=== PATIENT | male | born 1955 | race Caucasian/White ===

== ENCOUNTER 2020-01-20 19:42 | Inpatient (IN) | payer OTHER ==
[~2020-01-20] VITALS: Ht 175.3 cm; Wt 120.1 kg
--- NOTE | ~2020-01-20 | HC ---
[facility] [place] [address] CONSULTATION Name: SHANTEL HUMPHREY Room #: 353-P ADM IN M.Grabiel.#: [id number] Admission: 01/20/20 Attend Phys: Juan Luis Davis MD Discharge: Date of : 57 Report #: [id number] THIS REPORT FOR: cc: Jorge Mcfadden James L. DO Al-Absi, Ahmed I. MD ~ CC: Jorge Davis REASON FOR THE CONSULTATION: Elevated creatinine. REASON FOR THE PRESENTATION: Shortness of breath and elevated kidney numbers. HISTORY OF PRESENT ILLNESS: A 64-year-old with past medical history of COPD, hypertension. He presented to an outside facility with worsening shortness of breath. He had been treated there for pneumonitis. His describes what seems to be as an urticarial rash. The patient's creatinine when he presented to the other facility was elevated at 3.1 and he was told he will need to be transferred to our facility where a letterpress printing machinist is available. He was also found to have an elevated AST and ALT. He admits to taking nonsteroidal anti-inflammatory medications in the last few days. He is not really sure about which antibiotic he received in the other facility. He carries a diagnosis of hypertension. He is not aware of any previous knowledge of hematuria, proteinuria, being told that he has kidney issues. The patient's creatinine from this morning was 2.9. I was consulted to manage his kidney issues. PAST MEDICAL HISTORY: Includes the followin. COPD. 2. Rheumatoid arthritis. 3. Obesity. 4. Hypertension. 5. Post tonsillectomy. 6. Skin cancer. 7. Hernia repair. SOCIAL HISTORY: Denies alcohol or drug abuse. Lives with his . FAMILY HISTORY: Mother has diabetes mellitus. ALLERGIES: LEVOFLOXACIN AND MORPHINE. MEDICATIONS: 1. Nitroglycerin. 2. Metoprolol. 3. Aspirin. 4. Gabapentin. 5. Buspirone. [facility] [address] [place] [address] CONSULTATION Name: SHANTEL HUMPHREY Room #: 353-P [facility] IN [facility]#: [id number] Admission: 01/20/20 Attend Phys: Juan Luis Davis MD Discharge: Date of : 57 Report #: [id number] 6. Finasteride. 7. Prednisone. REVIEW OF SYSTEMS: GENERAL: Significant for occasional chills, but no fever. CARDIOVASCULAR: No chest pain or palpitation. PULMONARY: As per the history of present illness. GASTROINTESTINAL: No nausea or vomiting. GENITOURINARY: No frequency, no urgency. MUSCULOSKELETAL: Occasional back pain. Occasional arthralgias. NEUROLOGICAL: No headache, no dizziness. SKIN: Urticarial rash reported to the Emergency Room per the . PHYSICAL EXAMINATION: GENERAL: Alert, oriented, in no apparent distress. VITAL SIGNS: Blood pressure is 147/87, temperature is 36.3. HEAD AND NECK: No jugular venous distention. CHEST: Decreased air entry bilaterally. CARDIOVASCULAR: No rub detected. ABDOMEN: Soft and nontender. LOWER EXTREMITIES: No edema. LABORATORY VALUES: White blood cell count is 13.8. Sodium is 133, potassium is 4.8, BUN is 51, creatinine is 2.9, AST is elevated at 173, ALT is also elevated at 361. IMPRESSION AND PLAN: 1. Acute kidney injury with unknown baseline. 2. Hypertension. 3. Respiratory failure. 4. Elevated liver enzyme. 5. Recent pneumonia. 6. Hypertension. 7. We will initiate the appropriate workup for the patient's acute kidney injury. I would like to obtain his previous values from his previous primary care physician. 8. Continue with the IV fluid port for now. 9. Rule out obstructive uropathy. 10. Urinary studies. 11. Septic workup had been initiated given the mildly elevated lactic acid on presentation. 12. Avoid nephrotoxins. 13. Continue to monitor electrolytes. [address] [address] CONSULTATION Name: SHANTEL HUMPHREY Grabiel Room #: 353-P [facility] IN M.R.#: [id number] Admission: 01/20/20 Attend Phys: Juan Luis Davis MD Discharge: Date of : 57 Report #: [id number] 14. Ongoing gastrointestinal issues and elevated liver enzymes are being addressed by the primary team. By: [id number] Carter Wallace MD /nt
[~2020-01-20 19:42] MED LIST: ARAVA20 MG PO; BREO ELLIPTA 11 EACH IH; CEFTIN 250 MG250 MG PO; COLACE100 MG PO; DUONEB 2.5-0.5 M3 ML INH; MS CONTIN15 MG PO; NIACIN50 MG PO; NORVASC10 MG PO; OMEPRAZOLE40 MG PO; PREDNISONE 10 M10 MG PO; TYLENOL325 MG PO; VENTOLIN HFA 1818 GM INH; VITAMIN B-1100 M1 PO
[2020-01-20 21:47] VITALS: BP 110/71
[2020-01-20] MEDS ORDERED: ASA81BEC PO (23:36)
[2020-01-20] MEDS ORDERED: B COMPLEX1 EACH PO (23:37)
[2020-01-20] MEDS ORDERED: BUSPIRONE HCL10 MG PO (23:38)
[2020-01-20] MEDS ORDERED: TOPROL XL25 MG PO (23:39)
[2020-01-20] MEDS ORDERED: NEURONTIN 300M300 M2 PO (23:39)
[2020-01-20] MEDS ORDERED: NITROSTAT0.4 M1 SUBLING (23:41)
[2020-01-20] MEDS ORDERED: PROTONIX40 M4 PO (23:44)
[2020-01-20] MEDS ORDERED: OXYCODONE HCL20 M1 PO (23:44)
[2020-01-20] MEDS ORDERED: PREDNISONE 5 MG5 M1 PO (23:45)
[2020-01-20] MEDS ORDERED: FINASTERIDE5 MG PO (23:46)
[2020-01-20] MEDS ORDERED: SPIRIVA RESPIMAT4 GM INH (23:47)
[2020-01-21 00:59] LABS: ABSOLUTE NEUTROPHILS 12.3 thou/uL (1.4-8.2); BASOPHILS 0.4 % (0.0-2.0); EOSINOPHILS 0.1 % (0.0-3.0); LYMPHOCYTES 5.5 % (24.0-44.0); MCH 28.7 pg (26.0-34.0); MCHC 31.8 g/dL (28.0-37.0); MCV 90.3 fL (80.0-100.0); MONOCYTES 4.2 % (1.0-8.0); PLATELET COUNT 169 thou/uL (150-400); POLYS 89.8 % (36.0-66.0); RBC 4.54 mil/uL (4.50-6.00); RDW 16.8 % (10.5-14.5); WBC 13.8 thou/uL (4.0-11.0)
[2020-01-21 01:22] LABS: ALBUMIN 2.9 g/dL (3.4-5.0); ANION GAP 7 mmol/L (7-16); BUN 51 mg/dL (7-18); CALCIUM 9.2 mg/dL (8.5-10.1); CHLORIDE 98 mmol/L (98-107); CO2 28 mmol/L (21-32); CREATININE 2.9 mg/dL (0.7-1.3); GLUCOSE 92 mg/dL (74-106); POTASSIUM 4.8 mmol/L (3.5-5.1); SGOT 173 U/L (15-37); SGPT 361 U/L (30-65); SODIUM 133 mmol/L (136-145); TOTAL BILIRUBIN 0.8 mg/dL (<0.1-1.0); TOTAL PROTEIN 5.4 g/dL (6.4-8.2)
[2020-01-21 01:56] LABS: CHOLESTEROL 126 mg/dL (<200); HDL CHOLESTEROL 48 mg/dL (>40); LDL CHOLESTEROL 54 mg/dL (<100); SERUM ASSESSMENT Clear; TC:HDL 2.6 Ratio (Not establshd); TRIGLYCERIDE 120 mg/dL (<150); VLDL 24 mg/dL (<40)
[2020-01-21 03:45] VITALS: BP 139/83
[2020-01-21 08:48] VITALS: BP 147/87
[2020-01-21 11:50] LABS: URINE BILIRUBIN NEGATIVE (Negative); URINE BLOOD 2+ (Negative); URINE CLARITY CLEAR; URINE COLOR YELLOW; URINE GLUCOSE-RANDOM* NEGATIVE (Negative); URINE KETONES NEGATIVE (Negative); URINE LEUKOCYTES NEGATIVE (Negative); URINE NITRITE NEGATIVE (Negative); URINE PROTEIN (DIPSTICK) NEGATIVE (Negative); URINE UROBILINOGEN 0.2 E.U./dl (0.2-1.0)
[2020-01-21 12:10] LABS: CASTS None Seen /LPF (None Seen); CRYSTALS None Seen /LPF (None Seen); SQUAMOUS 0-3 Few /LPF (0-3)
[2020-01-21 12:12] LABS: BACTERIA 1-9 Few /HPF (None Seen); URINE RBC 3-10 Few /HPF (0-2); URINE WBC 0-5 Rare /HPF (0-5)
[2020-01-21 13:00] VITALS: BP 107/62
[2020-01-21 15:57] VITALS: BP 132/82
[2020-01-21 20:30] VITALS: BP 148/89
[2020-01-22 03:20] VITALS: BP 157/88
[2020-01-22 06:44] LABS: HEMATOCRIT 36.8 % (42.0-52.0); HEMOGLOBIN 12.1 gm/dL (14.0-18.0); MCH 29.7 pg (26.0-34.0); MCHC 32.9 g/dL (28.0-37.0); MCV 90.4 fL (80.0-100.0); RBC 4.07 mil/uL (4.50-6.00); RDW 16.7 % (10.5-14.5); WBC 6.8 thou/uL (4.0-11.0)
[2020-01-22 07:02] LABS: ALBUMIN 2.6 g/dL (3.4-5.0); ANION GAP 9 mmol/L (7-16); BUN 28 mg/dL (7-18); CALCIUM 8.5 mg/dL (8.5-10.1); CHLORIDE 104 mmol/L (98-107); CO2 26 mmol/L (21-32); CREATININE 1.6 mg/dL (0.7-1.3); GLUCOSE 90 mg/dL (74-106); POTASSIUM 3.7 mmol/L (3.5-5.1); SODIUM 139 mmol/L (136-145); TROPONIN-I <0.06 ng/mL (<0.06)
--- NOTE | 2020-01-22 07:50 | EKG ---
[facility] [place] [address] ELECTROCARDIOGRAM REPORT Name: SHANTEL HUMPHREY Room #: 353- ADM IN M.R.#: [id number] Admission: 01/20/20 Attend Phys: Juan Luis Davis MD Discharge: Date of : 57 Report #: [id number] THIS REPORT FOR: cc: Jorge Mcfadden,Jorge Mclain,Silas Mosley MD [facility] ~ THIS REPORT FOR: //name// [facility] Test Date: 2020-01-21 Test Time: 07:36:13 Pat Name: SHANTEL HUMPHREY Department: Room: 353 Gender: M Research Program Assistant: Anabela CHAPMAN : 1955 Requested By: Smita Mccurdy Order Number: [id number] MD: Silas Leavitt Measurements Intervals [place] Rate: 86 P: 71 SD: 154 QRS: 59 QRSD: 108 T: 83 QT: 316 QTc: 378 Interpretive Statements Sinus rhythm Abnormal R-wave progression, early transition No previous ECG available for comparison Electronically Signed On 01-22-2020 7:49:14 CDT by Silas Leavitt [email or web address] <ELECTRONICALLY SIGNED> By: Silas Leavitt MD, FAC 01/22/20 0749 0736 0736 Silas Leavitt MD, [facility] /EPI
[2020-01-22 09:30] VITALS: BP 149/91
[2020-01-22 11:25] VITALS: BP 124/74
[2020-01-22 16:32] VITALS: BP 149/91
[2020-01-22 20:25] VITALS: BP 148/100
[2020-01-22 23:24] VITALS: BP 154/93
[2020-01-23 03:23] VITALS: BP 150/88
[2020-01-23 05:58] LABS: HEMATOCRIT 36.6 % (42.0-52.0); MCH 29.7 pg (26.0-34.0); MCHC 32.7 g/dL (28.0-37.0); RBC 4.02 mil/uL (4.50-6.00); RDW 16.8 % (10.5-14.5); WBC 5.5 thou/uL (4.0-11.0)
[2020-01-23 06:18] LABS: CALCIUM 8.2 mg/dL (8.5-10.1); CREATININE 1.3 mg/dL (0.7-1.3); POTASSIUM 4.3 mmol/L (3.5-5.1)
[2020-01-23 15:20] VITALS: BP 148/88
[2020-01-23 19:48] VITALS: BP 171/89
[2020-01-24 00:01] VITALS: BP 147/84
[2020-01-24 04:39] VITALS: BP 164/78
[2020-01-24 05:49] LABS: HEMATOCRIT 37.1 % (42.0-52.0); HEMOGLOBIN 11.9 gm/dL (14.0-18.0); MCH 29.4 pg (26.0-34.0); MCHC 32.2 g/dL (28.0-37.0); MCV 91.5 fL (80.0-100.0); RBC 4.05 mil/uL (4.50-6.00); RDW 16.8 % (10.5-14.5); WBC 7.1 thou/uL (4.0-11.0)
[2020-01-24 06:13] LABS: CALCIUM 8.4 mg/dL (8.5-10.1); CREATININE 1.2 mg/dL (0.7-1.3); POTASSIUM 4.1 mmol/L (3.5-5.1)
[2020-01-24 07:25] VITALS: BP 139/101
[2020-01-24 11:34] LABS: ALBUMIN 2.7 g/dL (3.4-5.0); DIRECT BILIRUBIN 0.1 mg/dL (<0.1-0.2); TOTAL BILIRUBIN 0.5 mg/dL (<0.1-1.0)
[2020-01-24 11:36] VITALS: BP 150/81
[2020-01-24 15:23] VITALS: BP 160/85
[2020-01-24 19:35] VITALS: BP 148/80
[2020-01-25 04:10] VITALS: BP 150/92
[2020-01-25 07:17] VITALS: BP 151/87
[2020-01-25 11:19] VITALS: BP 126/55
[2020-01-25 15:25] VITALS: BP 156/76
[2020-01-25 19:42] VITALS: BP 155/71
[2020-01-26 04:33] VITALS: BP 176/83
[2020-01-26 06:10] VITALS: BP 145/85
[2020-01-26 07:08] VITALS: BP 166/78
[2020-01-26] MEDS ORDERED: AUGMENTIN 875-1 EACH PO (12:22)
[2020-01-26 12:26] VITALS: BP 166/78
[2020-01-26 12:40] VITALS: BP 166/78
[2020-01-27 15:08] LABS: ADENOVIRUS Negative (Negative); INFLUENZA A Negative (Negative); INFLUENZA B Negative (Negative); METAPNEUMOVIRUS Negative (Negative); PARAINFLUENZA 1 Negative (Negative); PARAINFLUENZA 2 Negative (Negative); PARAINFLUENZA 3 Negative (Negative); RHINOVIRUS Negative (Negative); RSV A Negative (Negative); RSV B Negative (Negative)
== END 2020-01-26 15:16 | disposition home or self-care (01) | DRG 871 ==
LOC: 3W 19:42 → ENTRNSPT 01-26 14:53 → 3W 01-26 15:16
PROVIDERS: Hospitalist; Nurse Practitioner Family; ADMIT Hospitalist
DX: A41.9 Sepsis, unspecified organism (principal); J96.21 Acute and chronic respiratory failure with hypoxia; J18.9 Pneumonia, unspecified organism; N17.0 Acute kidney failure with tubular necrosis; J44.0 Chronic obstructive pulmonary disease with (acute) lower respiratory infection; N17.9 Acute kidney failure, unspecified; Y95 Nosocomial condition; G89.29 Other chronic pain; M06.9 Rheumatoid arthritis, unspecified; M19.90 Unspecified osteoarthritis, unspecified site; K21.9 Gastro-esophageal reflux disease without esophagitis; E66.9 Obesity, unspecified; N40.0 Benign prostatic hyperplasia without lower urinary tract symptoms; F41.9 Anxiety disorder, unspecified; G47.00 Insomnia, unspecified; R65.20 Severe sepsis without septic shock; R74.0 Nonspecific elevation of levels of transaminase and lactic acid dehydrogenase [LDH]; N18.9 Chronic kidney disease, unspecified; Z68.39 Body mass index [BMI] 39.0-39.9, adult; Z83.3 Family history of diabetes mellitus; Z88.6 Allergy status to analgesic agent; Z88.1 Allergy status to other antibiotic agents; Z87.891 Personal history of nicotine dependence
CPT/HCPCS: 10879

== ENCOUNTER 2021-08-04 13:46 | Inpatient (IN) | payer OTHER ==
[~2021-08-04] VITALS: Ht 182.9 cm; Wt 149.7 kg
[2021-08-04] VITALS (35 sets, daily range): BP systolic 59–124; BP diastolic 29–101
[~2021-08-04 13:46] MED LIST changes: +ASA81BEC PO; +AUGMENTIN 875-1 EACH PO; +B COMPLEX1 EACH PO; +BUSPIRONE HCL10 MG PO; +FINASTERIDE5 MG PO; +NEURONTIN 300M300 M2 PO; +NITROSTAT0.4 M1 SUBLING; +OXYCODONE HCL20 M1 PO; +PREDNISONE 5 MG5 M1 PO; +PROTONIX40 M4 PO; +SPIRIVA RESPIMAT4 GM INH; +TOPROL XL25 MG PO
--- NOTE | 2021-08-04 15:52 | NUR ---
153-RECEIVED PT VIA [facility] D.S[facility] FROM [facility].--VW 3513-SPOKE W TO INFORM OF PT'S ARRIVAL.--VW
[2021-08-04 16:14] LABS: BE(vivo) -0.1 mmol/L (-2 to +3); HCO3 29.6 mmol/L (22.0-26.0); PO2 81.1 mmHg (80.0-100.0); sO2 93.1 % (92.0-98.0)
[2021-08-04 16:15] LABS: pH 7.214 (7.360-7.450)
[2021-08-04 18:05] LABS: HEMATOCRIT 38.1 % (42.0-52.0); HEMOGLOBIN 11.9 gm/dL (14.0-18.0); MCH 29.2 pg (26.0-34.0); MCHC 31.3 g/dL (28.0-37.0); MCV 93.3 fL (80.0-100.0); PLATELET COUNT 180 thou/uL (150-400); RBC 4.08 mil/uL (4.50-6.00)
[2021-08-04 18:21] LABS: APTT 27.6 Seconds (24.5-32.8); CALCIUM 7.9 mg/dL (8.5-10.1); CREATININE 2.9 mg/dL (0.7-1.3); INR 1.16; POTASSIUM 5.8 mmol/L (3.5-5.1); PROTIME 12.6 Seconds (10.5-12.1)
[2021-08-04 18:24] LABS: ALBUMIN 2.7 g/dL (3.4-5.0); DIRECT BILIRUBIN 5.2 mg/dL (<0.1-0.2); PHOSPHORUS 6.6 mg/dL (2.6-4.7); TOTAL BILIRUBIN 3.5 mg/dL (0.2-1.0); TOTAL PROTEIN 5.8 g/dL (6.4-8.2)
--- NOTE | 2021-08-04 18:46 | NUR ---
NOTIFIED TO PLACE LINE- ORDER NOTED FOR PICC PLACEMENT. THE DIRECT ADMIT HAD NO CURRENT LABS IN THE COMPUTER AND NO MENTION OF RENAL FAILURE IN THE H&P. CONSENT NOTED. THE RIGHT UPPER ARM BASILIC WAS WIDLEY PATENT. A #5F TRIPLE LUMEN POWER PICC WAS PLACED PER HOSPITAL POLICY AFTER A BEDSIDE TIMEOUT. THE 44CM LINE WAS ADVANCED TO 0CM EXTERNAL WITHOUT DIFFICULTY AND CONFIRMED WITH SHERLOCK 3CG. AFTER PLACEMENT I WAS NOTIFIED THAT DR. WATTERS WANTED A CENTRAL LINE AND NOT A PICC. PICC PROCEDURE WAS ALREADY COMPLETED. THIS PATIENT IS ON BIPAP WITH A SHORT VERY LARGE NECK. IF INTUBATION OCCURS TONIGHT A CENTRAL LINE PROCEDURE WILL BE LESS DIFFICULT AFTER INTUBATION DUE TO THE RESTLESSNESS AND SHORTNESS OF BREATH NOTED IN THIS PATIENT. WE WILL FOLLOW UP IN THE AM.
[2021-08-04 18:54] LABS: ABSOLUTE NEUTROPHILS 17.1 thou/uL (1.4-8.2); PLATELET ESTIMATE NORMAL
[2021-08-04 20:34] LABS: BE(vivo) -0.2 mmol/L (-2 to +3); HCO3 27.9 mmol/L (22.0-26.0); PCO2 61.4 mmHg (35.0-45.0); PO2 155.8 mmHg (80.0-100.0); sO2 98.7 % (92.0-98.0)
[2021-08-04 20:37] LABS: pH 7.275 (7.360-7.450)
[2021-08-05] VITALS (57 sets, daily range): BP systolic 76–232; BP diastolic 45–193
[2021-08-05 04:58] LABS: HEMATOCRIT 36.9 % (42.0-52.0); HEMOGLOBIN 11.7 gm/dL (14.0-18.0); MCHC 31.7 g/dL (28.0-37.0); MCV 94.6 fL (80.0-100.0); RBC 3.9 mil/uL (4.50-6.00); RDW 15.3 % (10.5-14.5); WBC 15.6 thou/uL (4.0-11.0)
[2021-08-05 06:10] LABS: CALCIUM 7.7 mg/dL (8.5-10.1); CREATININE 3.6 mg/dL (0.7-1.3)
[2021-08-05 06:15] LABS: POTASSIUM 6.2 mmol/L (3.5-5.1)
--- NOTE | 2021-08-05 08:57 | 2DMMODE ---
[facility] [place] [address] 2 D/M-MODE ECHOCARDIOGRAM Name: SHANTEL HUMPHREY Room #: 251-P ADM IN M.R.#: [id number] Admission: 08/04/21 Attend Phys: Shira Luu MD Discharge: Date of : 57 Report #: [id number] THIS REPORT FOR: cc: Jorge Mcfadden James L. DO Santiago, Patrick MD [facility] ~ APPROVED REPORT Study performed: 08/05/2021 06:58:45 EXAM: Comprehensive 2D, Doppler, and color-flow Echocardiogram Patient Location: ICU Room #: 251 Status: routine BSA: 2.57 HR: 63 bpm BP: 120/78 mmHg Rhythm: Sinus arrhythmia Other Information Study Quality: Poor/very limited measurements Technically limited study due to morbid obesity, COPD, on CPAP, combative. Indications Respiratory failure, CHF. Hx: HTN, COPD. Echo Enhancing Agent Indication: Endocardial border delineation Agent(s) / Amount(s) Used: Optison 6 cc 2D Dimensions IVSd: 11.66 (7-11mm) LVDd: 57.50 mm PWd: 11.73 (7-11mm) LVDs: 45.88 (25-40mm) Left Atrium: 35.95 (27-40mm) Aortic Root: 36.81 mm Aortic Valve AoV Peak Kar.: 1.23 m/s AO Peak Gr.: 6.07 mmHg [facility] [address] [place] [address] 2 D/M-MODE ECHOCARDIOGRAM Name: SHANTEL HUMPHREY Room #: 251-P ADM IN M.R.#: [id number] Admission: 08/04/21 Attend Phys: Nancy Zheng Discharge: Date of : 57 Report #: [id number] Mitral Valve E/A Ratio: 1.1 MV Decel. Time: 227.69 ms MV E Max Kar.: 0.79 m/s MV A Kar.: 0.70 m/s MV PHT: 66.03 ms Pulmonary Valve PV Peak Kar.: 0.67 m/s PV Peak Gr.: 1.80 mmHg Tricuspid Valve RAP Estimate: 15.00 mmHg Left Ventricle Left ventricle is at the upper limits of normal. Mild concentric left ventricular hypertrophy. Left ventricular systolic function is low normal. LVEF is 50%. This study is not technically sufficient to allow evaluation of the LV diastolic function. Right Ventricle Right ventricle is not well visualized. Appears mildly hypokinetic in subcostal view. Atria Poor images uanable to measure atria. Aortic Valve The aortic valve is normal in structure; mildly calcified. No aortic regurgitation is seen. There is no aortic valvular stenosis. Mitral Valve The mitral valve is normal in structure. There is no mitral valve regurgitation noted. Tricuspid Valve Tricuspid valve is not well visualized. Unable to assess PA pressure. Pulmonic Valve The pulmonary valve is normal in structure. Trace pulmonic regurgitation. Great Vessels The aortic root is normal in size. Ascending aorta is not well visualized. IVC is dilated and collapses <50% with inspiration. [facility] [address] [place] [address] 2 D/M-MODE ECHOCARDIOGRAM Name: KAMSHANTEL Room #: 251-P [facility] IN .R.#: [id number] Admission: 08/04/21 Attend Phys: Nancy Zheng Discharge: Date of : 57 Report #: [id number] Pericardium There is no pericardial effusion. <Conclusion> Technically very difficult study Normal left ventricular size with mild concentric hypertrophy Ejection fraction around 50% Normal right ventricular size, slightly hypokinetic in some views Normal aortic/mitral valve structure and function Tricuspid valve not well visualized Normal aortic root size No pericardial effusion Optison was used to improve endocardial visualization. <ELECTRONICALLY SIGNED> By: Bi Sutton MD, FACC 08/05/2156 5 5 Bi Sutton MD, FACC /INF
--- NOTE | 2021-08-05 10:22 | NUR ---
Patient admits with renal failure and respitory failure. Patient transferred to [facility] from [facility]. Patient on continuous Bipap. Sp with at bedside. Patient resides in independent home with . No steps to enter home. recently got patient a walker. She reports he has a shuffling gait. He cannot lift his legs fully for ambulation. He has a shower tub with bath bench. She assists patient into bath tub and reports then he is indepenent with bathing. cooks, cleans and drives. PCP Dr Mcfadden. She has inquired to HH aide but patient has refused. Reviewed role of casemgt. Discussed patient likely need for post acute care. reports she has dtr in area who is RN and supportive. Patient has home oxygen via [facility] usu at 3 Liters. No CPAP or Bipap. Patient to have temorary dialysis cath placed. Casemgt following
[2021-08-05 10:50] LABS: BE(vivo) -1.6 mmol/L (-2 to +3); HCO3 25.1 mmol/L (22.0-26.0); PCO2 50.8 mmHg (35.0-45.0); PO2 81.9 mmHg (80.0-100.0)
[2021-08-05 10:51] LABS: pH 7.312 (7.360-7.450)
--- NOTE | 2021-08-05 12:46 | EKG ---
[address] [address] ELECTROCARDIOGRAM REPORT Name: SHANTEL HUMPHREY Grabiel Room #: 251-P ADM IN M.R.#: [id number] Admission: 08/04/21 Attend Phys: Shira Luu MD Discharge: Date of : 57 Report #: [id number] [facility] Test Date: 2021-08-05 Test Time: 09:42:00 Pat Name: SHANTEL HUMPHREY Department: Room: 251 Gender: M Senior Paralegal: DENIA : 1955 Requested By: Bi Sutton Order Number: [id number] MD: Bi Sutton Measurements Intervals [place] Rate: 62 P: 26 CA: 160 QRS: 61 QRSD: 84 T: 75 QT: 363 QTc: 369 Interpretive Statements Sinus rhythm Atrial premature complex Compared to ECG 01/21/2020 07:36:13 Atrial premature complex(es) now present Electronically Signed On 08-05-2021 12:46:00 CDT by Bi Sutton [email or web address] <ELECTRONICALLY SIGNED> By: Bi Sutton MD, [facility] 08/05/21 1246 1 1 Bi Sutton MD, FACC /EPI
--- NOTE | 2021-08-05 16:10 | NUR ---
PT AFEBRILE, OLIGRUIC (PROVIDERS AWARE), NO BM, NPO. TEMPORARTY HD CATH PLACED AT BEDSIDE BY IR, IN RIGHT IJ. DIALYSIS TODAY AND PLANNED FOR TOMORROW. PLAN IS TO DRAW AN ABG ONCE HD IS FINISHED AND THEN POSSIBLY INTUBATE PT BASED ON RESULTS AND CLINICAL PICTURE. PT AND FAMILY HAVE BEEN THOUROUGHLY UPDATED AND EDUCATED ON PT CONDITION AND POC. PT NOT PROGRESSING TOWARDS POC.
[2021-08-05 16:12] LABS: % SATURATION 8 % (20-39); IRON 17 ug/dL (65-175); TIBC 214 ug/dL (250-450)
[2021-08-05 16:46] LABS: ALBUMIN 2.8 g/dL (3.4-5.0); CALCIUM 7.9 mg/dL (8.5-10.1); CREATININE 3.2 mg/dL (0.7-1.3)
[2021-08-05 16:49] LABS: POTASSIUM 4.5 mmol/L (3.5-5.1)
[2021-08-05 17:31] LABS: BE(vivo) 0.8 mmol/L (-2 to +3); HCO3 26.1 mmol/L (22.0-26.0); PCO2 44.7 mmHg (35.0-45.0); PO2 74.4 mmHg (80.0-100.0); pH 7.385 (7.360-7.450); sO2 94.7 % (92.0-98.0)
[2021-08-05 22:06] LABS: IgG 629 mg/dL (603-1613)
[2021-08-06] VITALS (45 sets, daily range): BP systolic 140–189; BP diastolic 71–122
[2021-08-06 05:37] LABS: HEMATOCRIT 35.8 % (42.0-52.0); HEMOGLOBIN 11.6 gm/dL (14.0-18.0); MCH 29.3 pg (26.0-34.0); MCHC 32.3 g/dL (28.0-37.0); MCV 90.9 fL (80.0-100.0); RBC 3.94 mil/uL (4.50-6.00); RDW 15.3 % (10.5-14.5); WBC 12.6 thou/uL (4.0-11.0)
[2021-08-06 05:45] LABS: ALBUMIN 2.6 g/dL (3.4-5.0); CALCIUM 8.4 mg/dL (8.5-10.1); PHOSPHORUS 5.5 mg/dL (2.6-4.7); POTASSIUM 5.3 mmol/L (3.5-5.1)
--- NOTE | 2021-08-06 06:21 | NUR ---
ASSUMED CARE AT 1900. PT VERY AGITATED/RESTLESS BUT ABLE TO FOLLOW COMMANDS AND REDIRECTABLE. DID VOICE HE WAS HAVING NECK PAIN. 2030-SPOKE TO DR. WATTERS, RECEIVED ORDERS FOR PRN FENTANYL. GAVE PRN BP MEDS x3 OVERNIGHT. PT SPEECH MORE COHERENT OVERNIGHT, BUT VERY FORGETFUL AND STILL RESTLESS. HAS ASKED FOR WATER AND TO GO HOME SEVERAL TIMES. PT WILL START YELLING LOUDLY FOR AN UNKNOWN PERSON IF NOT REDIRECTED. SLOW PROGRESSION TOWARDS GOALS.
--- NOTE | 2021-08-06 12:27 | NUR ---
Dr Pooja Pozo consulted on TPN for the PT at 1200. He stated that we hold off on it and recheck tomorrow (08/07/21)
[2021-08-06 16:06] LABS: ANA INTERPRETATION Negative (Negative)
[2021-08-06 17:06] LABS: CERULOPLASMIN < 3.0 mg/dL (16.0-31.0)
--- NOTE | 2021-08-06 18:14 | NUR ---
Dr Wallace paged at 1810 concerning Pt's high BP. Ramon, from the answering service received the message Dr Wallace call back at 1820 and gave an order for hydralazine Q6 for systolic greater than 170
--- NOTE | 2021-08-06 18:51 | NUR ---
Pt is slowly progressing towards plan of care as evidenced by less demand of 02 support. Pt has been on NC 2L-4L during this shift. Pt's BP increased after dialysis, Dr. Wallace ordered hydralazine for systolic >170.
[2021-08-06 19:07] LABS: HAV IgM AB (ANTI-HAV IgM) Negative (Negative); HEPATITIS C VIRUS AB <0.1 (0.0-0.9)
[2021-08-07] VITALS (19 sets, daily range): BP systolic 127–160; BP diastolic 67–91
[2021-08-07 05:54] LABS: HEMATOCRIT 36.1 % (42.0-52.0); HEMOGLOBIN 11.5 gm/dL (14.0-18.0); MCH 29.2 pg (26.0-34.0); MCHC 31.9 g/dL (28.0-37.0); MCV 91.6 fL (80.0-100.0); RBC 3.94 mil/uL (4.50-6.00); RDW 14.9 % (10.5-14.5); WBC 9.8 thou/uL (4.0-11.0)
[2021-08-07 06:08] LABS: ALBUMIN 2.6 g/dL (3.4-5.0); CALCIUM 8.5 mg/dL (8.5-10.1); CREATININE 5.2 mg/dL (0.7-1.3); PHOSPHORUS 7.1 mg/dL (2.6-4.7); POTASSIUM 4.7 mmol/L (3.5-5.1)
--- NOTE | 2021-08-07 08:30 | NUR ---
ASSUMED CARE AT 1900. PT PROGRESSION TOWARDS GOALS MENTATION IS CLEARING OVERNIGHT AND ABLE TO TITRATE OFF PRECEDEX. MAINTAINED O2 SATS IN MID 90'S ON 4L, ABLE TO HOLD A CONVERSATION BUT SEEMS TO BE A POOR HISTORIAN/DOES NOT KNOW WHAT SPECIFIC MEDS HE IS ON-JUST THAT HE TAKES A BP MED/WATER PILL/DIABETIC PILL, ETC. SPOKE TO DR. HINES AT BEDSIDE THIS AM, PT WILL NOT HAVE DIALYSIS TODAY, HE IS FINE IF PT STARTS A DIET TODAY. NO OTHER CONCERNS.
--- NOTE | 2021-08-07 19:10 | NUR ---
JOHN ALVAREZ CALLED WITH PATIENT COMPLAIN OF NAUSEA AND HEADACHE. ORDER FOR KUB ORDERED.
[2021-08-07 20:06] LABS: SMOOTH MUSCLE ANTIBODY 8 Units (0-19)
[2021-08-08] VITALS (63 sets, daily range): BP systolic 84–206; BP diastolic 51–114
[2021-08-08 04:43] LABS: DIRECT BILIRUBIN 0.3 mg/dL (<0.1-0.2); PHOSPHORUS 6.8 mg/dL (2.6-4.7)
[2021-08-08 04:48] LABS: ALBUMIN 2.8 g/dL (3.4-5.0); CALCIUM 8.3 mg/dL (8.5-10.1); CREATININE 6.9 mg/dL (0.7-1.3); POTASSIUM 4.1 mmol/L (3.5-5.1); TOTAL BILIRUBIN 0.7 mg/dL (0.2-1.0); TOTAL PROTEIN 5.8 g/dL (6.4-8.2)
[2021-08-08 04:54] LABS: HEMATOCRIT 37.6 % (42.0-52.0); MCHC 31.9 g/dL (28.0-37.0); PLATELET COUNT 143 thou/uL (150-400); RBC 4.14 mil/uL (4.50-6.00); WBC 14.1 thou/uL (4.0-11.0)
--- NOTE | 2021-08-08 08:54 | NUR ---
Discussed during unit rounds and los with the hospitalist. He getting his 2 tx of dialysis today. O2 per nasal cannula. Possible able to move out to ccu when bed is available. Unable to with megan rasmussen pulled and bedside nurses in room with him. Will cont following as needed for dc needs.
[2021-08-08 09:30] LABS: ABSOLUTE NEUTROPHILS 12.8 thou/uL (1.4-8.2); PLATELET ESTIMATE NORMAL
--- NOTE | 2021-08-08 12:45 | NUR ---
RAPID RESPONSE from CCU. Report received from SAMIRA Yanes. As per SAMIRA Yanes, pt was given 40mg of Lasix, put back on Bipap and stat ABG obtained. ABG was conveyed to Dr. Cole by RT Mcginnis. No new orders received. Continue to monitor.
[2021-08-08 12:55] LABS: BE(vivo) 0.5 mmol/L (-2 to +3); HCO3 25.4 mmol/L (22.0-26.0); PO2 76.5 mmHg (80.0-100.0); sO2 95.3 % (92.0-98.0)
[2021-08-08 14:26] LABS: HEMATOCRIT 40.7 % (42.0-52.0); MCH 29.1 pg (26.0-34.0); MCHC 32.1 g/dL (28.0-37.0); MCV 90.9 fL (80.0-100.0); RBC 4.48 mil/uL (4.50-6.00); WBC 17.3 thou/uL (4.0-11.0)
[2021-08-08 15:04] LABS: APTT 22.4 Seconds (24.5-32.8); INR 1.05; PROTIME 11.4 Seconds (10.5-12.1)
[2021-08-09] VITALS (12 sets, daily range): BP systolic 148–187; BP diastolic 78–97
[2021-08-09 06:32] LABS: ALBUMIN 2.6 g/dL (3.4-5.0); CALCIUM 8.5 mg/dL (8.5-10.1); CREATININE 6.5 mg/dL (0.7-1.3); PHOSPHORUS 7.7 mg/dL (2.5-4.9); POTASSIUM 3.9 mmol/L (3.5-5.1)
--- NOTE | 2021-08-09 06:32 | NUR ---
PT PUT ON FACE SHIELD OVERNIGHT DUE TO INTERMITTENT OXYGEN DESATURATION DURING SLEEP. PRN HYDRALAZINE GIVEN X2. OLIGURIC. PT HAD INTERMITTENT BRIGHT RED BLOOD FROM NG TUBE DURING FIRST HALF OF SHIFT- NG TUBE OUTPUT NOW MORE BILE LOOKING. WILL CONTINUE TO MONITOR.
[2021-08-09 07:08] LABS: HEPATITIS B SURFACE AG Negative (Negative)
--- NOTE | 2021-08-09 14:50 | O ---
[facility] [place] [address] OPERATIVE REPORT Name: SHANTEL HUMPHREY Room #: 245-P ADM IN M.R.#: [id number] Admission: 08/04/21 Attend Phys: Shira Luu MD Discharge: Date of : 57 Report #: [id number] THIS REPORT FOR: cc: Jorge Mcfadden,Jorge Sands,Mukesh Kraemr MD ~ DATE OF SERVICE: 08/08/2021 PROCEDURE: Upper endoscopy. INDICATION: Hematemesis. ANESTHESIA: General anesthesia with intubation. FINDINGS: The adult upper endoscope was introduced through the mouth into the stomach, into the second portion of the duodenum and then withdrawn carefully, with careful inspection. Findings were a significant clot burden in the upper esophagus that was cleared. There were no lesions in the esophagus causing the bleeding. It was suspected that this was from NG tube trauma. Additional findings are hiatal hernia, mild gastritis, normal duodenum. The procedure was ended and the patient was recovered per established procedures and protocols. RECOMMENDATIONS: ENT consult for packing. <ELECTRONICALLY SIGNED> By: Mukesh Miller MD 08/09/21 1450 1457 1513 Mukesh Miller MD /nt
--- NOTE | 2021-08-09 18:42 | NUR ---
PT TRANSFERED TO CCU ROOM 214. REPORT GIVEN TO SAMIRA HUERTA. PT TRANSPORTED VIA RECLINER. PT BELONGINGS TAKEN TO CCU. CONTINUE TO MONITOR.
[2021-08-09 19:56] LABS: HEMATOCRIT 37.3 % (42.0-52.0); HEMOGLOBIN 12.1 gm/dL (14.0-18.0); MCH 29.8 pg (26.0-34.0); MCHC 32.5 g/dL (28.0-37.0); MCV 91.6 fL (80.0-100.0); RBC 4.07 mil/uL (4.50-6.00); RDW 15.5 % (10.5-14.5); WBC 10.6 thou/uL (4.0-11.0)
--- NOTE | 2021-08-10 04:06 | NUR ---
RECEIVED THIS PATIENT AT 1900H.PATIENT IS ALERT AND ORIENTEDX4.ON NASAL CANNULA 5LPM, SATURATING WELL.WITH ABAD CATHETER INTACT DRAING YELLOWISH URINE.WITH RIGHT UPPER ARM PICC LINE INTACT.WITH DIALYSIS CATHETER AT RIGHT JUGULAR INTACT.NOT IN IN PAIN OR DISTRESS.ALL NEEDS ATTENDED.
[2021-08-10 04:45] VITALS: BP 182/94
[2021-08-10 06:15] LABS: ALBUMIN 2.8 g/dL (3.4-5.0); CALCIUM 8.8 mg/dL (8.5-10.1); PHOSPHORUS 9.9 mg/dL (2.5-4.9); POTASSIUM 4.3 mmol/L (3.5-5.1)
[2021-08-10 06:36] LABS: CREATININE 8.3 mg/dL (0.7-1.3)
--- NOTE | 2021-08-10 15:28 | NUR ---
PATIENT SEEN BY DR. STACY AND IS A CANDIDATE FOR ACUTE REHAB STAY. AUTHORIZATION REQUEST MADE THIS DATE TO [facility] AFTER CONFIRMATION OF IN NETWORK STATUS WITH [facility], REFERANCE #[id number]. WILL AWAIT RESPONSE.
[2021-08-10 16:00] VITALS: BP 129/64
--- NOTE | 2021-08-10 17:05 | NUR ---
Met with patient and spoke with via phone. Patient/spouse live in [facility]. Discussed 5N eval and submitted for auth. If they do not rec auth left [facility] list in room for post acute care. Discussed cont to monitor if need for outpatient dialysis. Discussed outpatient clinics and dialysis. If not candidate for 5N interest in [facility] facilities for skilled and dialysis.
--- NOTE | 2021-08-10 18:18 | NUR ---
ASSSUMED CARE AT SHIFT CHANGE THIS AM. PT HAD DIALYSIS THIS MORNING, 500CC OFF. TOLERATED WELL. BP DECREASED DURING AND POST DIALYSIS AFTER PRN HYDRALAZINE WAS GIVEN BY GRAPHIC ILLUSTRATOR. PT DENIES PAIN THROUGHOUT DAY. WORKED WITH THERAPY TO GET TO CHAIR. MOD ASSIST, TACHY BUT DID NOT DESAT. TITRATED O2 DOWN TO 2.5L AND O2 IN 90'S. DENIES NAUSEA THROUGHOUT SHIFT. DIET ADVANCED TO FULL LIQUIDS FOR DINNER. PT PROGRESSING TOWARDS POC GOALS SLOWLY. WILL CONT TO MONITOR.
[2021-08-10 19:39] VITALS: BP 146/62
[2021-08-10 23:11] VITALS: BP 155/67
--- NOTE | 2021-08-11 03:35 | NUR ---
Assumed pt care at 1900. Pt is alert and oriented. No sign of distress noted in patient. Fall precaution in place. Patient in stable. Assessment completed and documented. Scheduled meds administered to pt. Patient had 3 episodes of liquid stool during the night. Bipap is on for sleep. No acute events noted during the night. Continue to monitor, no further needs at this time.
[2021-08-11 04:08] VITALS: BP 156/82
[2021-08-11 06:45] LABS: ALBUMIN 2.6 g/dL (3.4-5.0); CALCIUM 8.6 mg/dL (8.5-10.1); CREATININE 7.7 mg/dL (0.7-1.3); PHOSPHORUS 8.9 mg/dL (2.6-4.7); POTASSIUM 4.4 mmol/L (3.5-5.1)
[2021-08-11 07:41] VITALS: BP 181/78
[2021-08-11 11:50] VITALS: BP 156/62
[2021-08-11 15:35] VITALS: BP 157/73
--- NOTE | 2021-08-11 16:24 | NUR ---
5[facility] has submitted for ins approval for acute rehab stay. Awaiting their response.
--- NOTE | 2021-08-11 18:09 | NUR ---
ASSESSMENT CHARTED - MEDS PER JAN . PT WITH LOOSE STOOL THIS AM INCONTINENT IN BED AND ALSO USED THE COMMODE WHEN THERAPY CAME TO PLACE PATIENT IN THE CHAIR. PT ADVANCED TO RENAL DIET - AUTUMN WELL. ACCUCHECKS CHARTED. SPOKE ON PHONE WITH FAMILY TODAY. NO CO'S OF PAIN OR NAUSEA. NO CO'S AT THE PRESENT TIME.
[2021-08-11 19:41] VITALS: BP 136/78
[2021-08-12 04:23] VITALS: BP 162/93
--- NOTE | 2021-08-12 05:02 | NUR ---
Assumed pt care at 1900. Patient is alert and oriented. No sign of distress note in pt. Pt is on oxygen. Denies pain. Assessment completed and documented. Scheduled meds administered to pt. Tolerated PO intake. Refuses to wear BIPAP for sleep. CPOX in place. No acute event through the night. Continue to monitor, no further needs at this time.
[2021-08-12 06:20] LABS: HEMATOCRIT 33.5 % (42.0-52.0); HEMOGLOBIN 10.9 gm/dL (14.0-18.0); MCH 29.4 pg (26.0-34.0); MCHC 32.5 g/dL (28.0-37.0); MCV 90.6 fL (80.0-100.0); RBC 3.7 mil/uL (4.50-6.00); RDW 14.5 % (10.5-14.5); WBC 12.6 thou/uL (4.0-11.0)
[2021-08-12 06:45] LABS: ALBUMIN 2.7 g/dL (3.4-5.0); CALCIUM 8.5 mg/dL (8.5-10.1); CREATININE 9.1 mg/dL (0.7-1.3); POTASSIUM 4.4 mmol/L (3.5-5.1)
[2021-08-12 07:03] LABS: PHOSPHORUS 9.8 mg/dL (2.6-4.7)
--- NOTE | 2021-08-12 11:53 | NUR ---
PEER TO PEER REQUESTED BY JANINE AND PERFORMED THIS AM BY ALIZA PROCTOR. PATIENT WAS DENIED AUTHORIZATION. FAST APPEAL PHONE NUMBER IS [phone] AND FAST APPEAL FAX NUMBER IS [phone]. DOCTOR DID APPROVE SNF WHEN PATIENT IS MEDICALLY STABLE AND NOT NEEDING DAILY DIALYSIS. PRODUCTION MACHINE SHOP SUPERVISOR INFORMED.
[2021-08-12 16:20] VITALS: BP 146/60
--- NOTE | 2021-08-12 16:37 | NUR ---
Ins denied 5n acute rehab request even with a peer to peer this am. They are offering to approve SNF but community dialysis has not been arranged. MINDY spoke with the pt, his and also his dtr via phone. SNF listing left in the room and community dialysis options being explored as they live in [place]. There is a dialysis clinic in [place], [facility], or [place]. But pt would need to be able to tolerate ride to and from. SNF's in [place] contacted and neither can provide transport out to the dialysis clinics. LTAC also discussed and referrals faxed to [facility], [facility] and [facility]. He is working with therapy but only able to take a couple of steps with mod assist and transfers min/mod assist. CM to followup with LTAC on Sunday. Family to advise on their choice for dialysis clinic location. CM to fax a referral to [facility] SNF per their request if LTAC denied.
--- NOTE | 2021-08-12 19:31 | NUR ---
ASSESMENT CHARTED - MEDS PER JAN - GIVEN FENTANYL X 1 DOSE FOR CO'S OF PAIN IN BACK WITH GOOD RELIEF. AUTUMN DIET AND FLUIDS NO CO'S OF NAUSEA. PT HAD DILAYSIS THIS AM - AUTUMN WELL. UPTO THE CHAIR THIS AFTERNOON WITH PHYS THERAPY ASSIST. NO STOOLS NOTED TODAY. APPEARS TO BE COMFORTABLE AT THE PRESENT TIME.
[2021-08-12 19:32] VITALS: BP 130/50
[2021-08-13 04:15] VITALS: BP 146/83
[2021-08-13 07:07] LABS: ALBUMIN 2.6 g/dL (3.4-5.0); CALCIUM 8.6 mg/dL (8.5-10.1); PHOSPHORUS 6.9 mg/dL (2.6-4.7); POTASSIUM 3.6 mmol/L (3.5-5.1)
[2021-08-13 07:08] LABS: CREATININE 7.6 mg/dL (0.7-1.3)
--- NOTE | 2021-08-13 09:50 | NUR ---
ASSESSMENTS CHARTED, UP TO BSC WITH FREQ, SOFT STOOLS, NO C/O PAIN, ZOFRAN AND TUMS GIVEN FOR C/O HEART BURN WITH OUT MUCH RELIEF, LABS DRAWN AND SENT TO LAB, REPORT GIVEN TO NEXT SHIFT TO CON'T WITH [facility].
[2021-08-13 12:30] VITALS: BP 133/68
[2021-08-13 16:00] VITALS: BP 147/72
[2021-08-13 20:30] VITALS: BP 159/58
[2021-08-14 04:45] VITALS: BP 151/84
--- NOTE | 2021-08-14 06:53 | NUR ---
PT LYING IN BED. DENIES PAIN. INCONTINENT OF BOWEL. RESTING COMFORTABLY. NO NEEDS VOICED. CALL LIGHT WITHIN REACH. FREQUENT OBSERVATION.
[2021-08-14 07:21] LABS: ALBUMIN 2.6 g/dL (3.4-5.0); CALCIUM 8.3 mg/dL (8.5-10.1); PHOSPHORUS 8.5 mg/dL (2.6-4.7); POTASSIUM 3.9 mmol/L (3.5-5.1)
[2021-08-14 07:24] LABS: CREATININE 9.1 mg/dL (0.7-1.3)
[2021-08-14 08:44] VITALS: BP 145/58
[2021-08-14 12:54] VITALS: BP 131/51
--- NOTE | 2021-08-14 15:39 | NUR ---
Assumed care of pt this AM. Pt is A&O x4, received on 3L NC. Currently on 5L NC after desating & collaborating with RT. Pt c/o back pain. Given PRN pain medication. SR w/ PVCs on the monitor. Incontinent of bowel & portillo in place. Spoke to pts today. Denies any other needs at this time.
[2021-08-14 16:34] VITALS: BP 149/65
[2021-08-14 19:55] VITALS: BP 137/80
[2021-08-15 04:45] VITALS: BP 147/81
[2021-08-15 06:54] LABS: ALBUMIN 2.6 g/dL (3.4-5.0); CALCIUM 8.4 mg/dL (8.5-10.1); PHOSPHORUS 10.2 mg/dL (2.6-4.7); POTASSIUM 4.2 mmol/L (3.5-5.1)
[2021-08-15 07:05] LABS: CREATININE 10.2 mg/dL (0.7-1.3)
[2021-08-15 07:50] VITALS: BP 112/70
--- NOTE | 2021-08-15 08:07 | NUR ---
PT LYING IN BED. TYLENOL AND FENTANYL PROVIDING RELIEF FOR BACK PAIN. FREQUENT OBERVATION.
[2021-08-15 11:30] VITALS: BP 170/78
[2021-08-15 12:09] LABS: BE(vivo) -4.4 mmol/L (-2 to +3); HCO3 20.5 mmol/L (22.0-26.0); PCO2 36.9 mmHg (35.0-45.0); PO2 86.5 mmHg (80.0-100.0); pH 7.362 (7.360-7.450); sO2 96.3 % (92.0-98.0)
--- NOTE | 2021-08-15 15:44 | NUR ---
PT TAKING TO PROCEDURE AT APPROXIMATELY 1430
--- NOTE | 2021-08-15 16:34 | NUR ---
[facility] is not in network with insurance. Faxxed referra to [facility]. Referral to [facility] and [facility] for review. Sp with dtr. Discussed skilled vs LTAC and [facility] not in network. Dtr Sushila prefers LTAC for continued medical over sight and dialysis on site until clinic in community established. Requested liason with [facility] and [facility] reach out to dtr to review LTAC. Sp with [facility] they rec referral. At this time dtr interested in [place] dialysis clinic and moving mother to dialysis to be closer to clinic. Plan to fax clinical information to [facility] for review.
--- NOTE | 2021-08-15 18:16 | NUR ---
PT HAD DIALYSIS TODAY WITH 3.1L OFF. PT WENT FOR PROCEDURE THIS AFTERNOON TO HAVE A PERMANENT DIALYSIS CATHETER PLACED THIS AFTERNOON. PT CURRENTLY SLEEPING.
[2021-08-15 20:15] VITALS: BP 119/58
[2021-08-16 04:45] VITALS: BP 151/84
[2021-08-16 07:40] VITALS: BP 153/84
--- NOTE | 2021-08-16 07:55 | NUR ---
ASSUME CARE 1900. PT/VITALS STABLE. INTERMITTENT BACK PAIN INDICATED WITH MODERATE RELIEF FROM PAIN MEDICATION. MODERATE TOLERANCE TO ACTIVITY. PT/OT WORKING WITH PT. SR ON MONITOR. ADEQUATE SATS ON 4LNC. SOB NOTED WITH EXERTION. ASSESSMENT CHARTED. PROGRESSING MODERATELY WITH POC. NO DISTRESS NOTED THROUGH THE NIGHT. PLAN IS TO CONTINUE WITH DIALYSIS AND CM CONSULTED FOR DISCHARGE PLANNING: HOME WITH HOME HEALTH OR OUTPATIENT REHAB. WILL CONTINUE TO MONITOR AND FOLLOW WITH POC
--- NOTE | 2021-08-16 11:18 | NUR ---
[facility] and [facility] are accepting of patient. Sp with Sushila who has spoken with Maryann at [facility] and reports their choice is [facility]. Faxed updated clinical to [facility]. They plan to submit for auth.
[2021-08-16 12:00] VITALS: BP 151/70
[2021-08-16 13:06] LABS: HEMATOCRIT 31.3 % (42.0-52.0); MCH 29.6 pg (26.0-34.0); MCHC 31.9 g/dL (28.0-37.0); MCV 92.8 fL (80.0-100.0); RBC 3.37 mil/uL (4.50-6.00); RDW 15.3 % (10.5-14.5); WBC 12.7 thou/uL (4.0-11.0)
[2021-08-16 13:13] LABS: CALCIUM 8.3 mg/dL (8.5-10.1); MAGNESIUM 2.2 mg/dL (1.8-2.4); POTASSIUM 4.6 mmol/L (3.5-5.1)
[2021-08-16 13:14] LABS: CREATININE 8.8 mg/dL (0.7-1.3)
[2021-08-16 13:38] LABS: ALBUMIN 2.6 g/dL (3.4-5.0); DIRECT BILIRUBIN 0.2 mg/dL (<0.1-0.2); TOTAL BILIRUBIN 0.4 mg/dL (0.2-1.0); TOTAL PROTEIN 5.7 g/dL (6.4-8.2)
[2021-08-16 15:00] VITALS: BP 151/76
--- NOTE | 2021-08-16 16:24 | NUR ---
PT RESTING COMFORTABLY. PT WAS ABLE TO WORK WITH PT/OT SOMEWHAT. CT OF HEAD THIS AM. PT AFEBRILE, ADEQUATE UOP, SMALL BM, POOR APPETITE. R IJ TUNNELED HD CATH IN PLACE. RU-PICC IN PLACE AND FUNCTIONING WELL, DRESSING CHANGED BY IV ACCESS TEAM. PT HAS BEEN THOUROUGHLY UPDATED AND EDUCATED ON PT CONDITION AND POC. PT SLOWLY PROGRESSING TOWARDS POC.
[2021-08-16 20:32] VITALS: BP 150/68
--- NOTE | 2021-08-17 01:29 | NUR ---
TOOK OVER CARE. PT SLEEPING IN BED. O2 PER EMI. POLLO PURCELL DD.
[2021-08-17 04:47] VITALS: BP 152/65
[2021-08-17 04:58] LABS: HEMATOCRIT 27.6 % (42.0-52.0); MCH 30.1 pg (26.0-34.0); MCHC 32.7 g/dL (28.0-37.0); MCV 91.9 fL (80.0-100.0); WBC 11.9 thou/uL (4.0-11.0)
[2021-08-17 05:26] LABS: CALCIUM 8.2 mg/dL (8.5-10.1); CREATININE 9.4 mg/dL (0.7-1.3); MAGNESIUM 2.3 mg/dL (1.8-2.4); POTASSIUM 4.2 mmol/L (3.5-5.1)
[2021-08-17 08:00] VITALS: BP 166/105
[2021-08-17 08:08] LABS: HIV ANTIBODY Non Reactive (Non Reactive)
[2021-08-17 11:45] VITALS: BP 123/62
--- NOTE | 2021-08-17 11:50 | HC ---
[facility] [place] [address] CONSULTATION Name: SHANTEL HUMPHREY Room #: 214-P ADM IN M.R.#: [id number] Admission: 08/04/21 Attend Phys: Shria Luu MD Discharge: Date of : 57 Report #: [id number] THIS REPORT FOR: cc: Jorge Mfcadden James L. DO Barry, Joseph W. MD ~ DATE OF SERVICE: 08/16/2021 INFECTIOUS DISEASE CONSULTATION ATTENDING PHYSICIAN: Dr. Keene. REASON FOR EVALUATION: Chronic respiratory failure, history of fungal pulmonary infection. HISTORY OF PRESENT ILLNESS: Chart reviewed. Patient examined. This is a 66-year-old gentleman with extensive medical history given his age, has underlying O2 requiring chronic respiratory failure. He has end-stage renal disease, now on chronic dialysis. He has known recent history of upper gastrointestinal hemorrhage, who was admitted through the Emergency Room via transfer with respiratory failure, had been requiring BiPAP. He is normally on 3 liters per nasal cannula at home for the last two to three years due to pulmonary obstructive disease, was found to have progressive renal failure as well. On initial evaluation, there is question of sepsis picture with elevation of the procalcitonin. He had been empirically placed on Zosyn. Previous cultures to date have not been clarifying. Overall, apparently he has improved. At this point denies significant pain. Recent ABG showed a pH 7.362, pCO2 of 36.9, pO2 of 86.5 on 5 liters. His creatinine was elevated at 10.2. Chest x-ray showed mild to moderate cardiomegaly, peripheral base patchy infiltrates, more evident on the right. Most recent white count was elevated at 12.6 several days ago. Repeat is pending. ALLERGIES: MORPHINE, LEVAQUIN, the latter which causes rash as well as swelling in the legs. CURRENT MEDICATIONS: Include pantoprazole, calcium carbonate, prednisone 20 daily, lactobacillus, diltiazem, oxymetazoline, Zosyn started on 08/08/2021, insulin lispro, ipratropium/albuterol inhaler. PAST MEDICAL HISTORY: As described above, history of rheumatoid arthritis, osteoarthritis, chronic pain syndrome, O2 requiring COPD baseline 3 liters, reflux, insomnia, anxiety, BPH, hypertension, anxiety and depression, history of fungal pneumonia. SOCIAL HISTORY: Former smoker, no ethanol, no illicit drug use. [address] [address] CONSULTATION Name: SHANTEL HUMPHREY Room #: 214-P [facility] IN ..#: [id number] Admission: 08/04/21 Attend Phys: Shira Luu MD Discharge: Date of : 57 Report #: [id number] FAMILY HISTORY: Noncontributory. REVIEW OF SYSTEMS: Otherwise unremarkable with the exception of the above. PHYSICAL EXAMINATION: GENERAL: Appears chronically ill and undernourished. He is obese with a large distended abdomen. He is mildly encephalopathic, in moderate distress. VITAL SIGNS: Temperature 97.4, pulse 98, respirations 20, blood pressure 151/70. SKIN: No rashes. HEENT: Normocephalic. Extraocular muscles intact. Nasal cannula in place. NECK: Supple. LUNGS: Diminished overall, few scattered coarse breath sounds. HEART: Distant, appears to be regular, maybe ectopy, perhaps a soft systolic murmur. ABDOMEN: Distended, somewhat firm. There is no overt tenderness to palpation. I do not appreciate any peritoneal signs. EXTREMITIES: Lower extremities have some edema. GENITOURINARY AND RECTAL: Deferred. LABORATORY DATA: As described above. Most recent electrolytes: Sodium 136, potassium 4.2, chloride 99, bicarbonate 24, anion gap of 13, BUN and creatinine 90 and 10.2, glucose of 88. Albumin of 2.6, total protein not listed. Estimated GFR of 5. CBC: White count 12.6, H and H 10.9 and 32.5, platelets of 209. Procalcitonin on admission 28.51. CT chest is pending. CT abdomen and pelvis done on 08/08/2021 showed gas distention of the stomach. No evidence of bowel obstruction. Bilateral small pleural effusions, bilateral posterior lower lung atelectasis, cholelithiasis. Ultrasound done prior to that showed cholelithiasis with gallbladder wall thickening, mild extrahepatic bile duct prominence. ASSESSMENT AND PLAN: 1. Chronic respiratory failure complicated by acute process with a history of fungal pneumonitis. We will try to obtain records from Dr. Mcfadden in [place] and get more details. We will do additional diagnostic testing. It is unclear whether this is Aspergillus or histoplasmosis. His spouse was uncertain. 2. He has chronic renal failure. 3. Early Morbid obesity. 4. Leukocytosis. Repeat labs pending. We will plan to continue Zosyn for the moment. Repeat additional diagnostic testing to evaluate. At this point, he is not overtly toxic, although he is [facility] [address] [place] [address] CONSULTATION Name: SHANTEL HUMPHREY Room #: 214-P ADM IN M.R.#: [id number] Admission: 08/04/21 Attend Phys: Shira Luu MD Discharge: Date of : 57 Report #: [id number] quite tenuous and I suspect very little reserve in the event that he would develop a nosocomial-related complication including infection. <ELECTRONICALLY SIGNED> By: Otto Heller MD 08/17/21 1150 [id number] 1543 Otto Heller MD /nt
--- NOTE | 2021-08-17 14:56 | NUR ---
PT RESTING COMFORTABLY. WORKED WITH PT/OT. PT AFEBRILE, ADEQUATE UOP, NO BM, FAIR APPETITE. RIGHT IJ HD CATH IN PLACE. RU PICC IN PLACE AND FUNCTIONING WELL. HD TODAY, 3L TAKEN OFF PER HD RN. PT HAS BEEN THOUROUGHLY UPDATED AND EDUCATED ON PT CONDITION AND POC. PT SLOWLY PROGRESSING TOWARDS POC.
--- NOTE | 2021-08-17 16:24 | NUR ---
Spoke with Jeffery who submitted for auth yesterday and have not heard anything today. Sp with dtr and updated. Casemgt following.
[2021-08-17 20:15] VITALS: BP 154/76
[2021-08-18] VITALS: BP 163/84
[2021-08-18 04:45] VITALS: BP 155/81
[2021-08-18 06:09] LABS: HEMATOCRIT 27.1 % (42.0-52.0); MCH 30.4 pg (26.0-34.0); MCHC 33.2 g/dL (28.0-37.0); MCV 91.6 fL (80.0-100.0); RBC 2.96 mil/uL (4.50-6.00); RDW 15.1 % (10.5-14.5); WBC 11.6 thou/uL (4.0-11.0)
[2021-08-18 06:53] LABS: CALCIUM 8.1 mg/dL (8.5-10.1); POTASSIUM 3.8 mmol/L (3.5-5.1)
[2021-08-18 06:54] LABS: CREATININE 6.4 mg/dL (0.7-1.3)
[2021-08-18 08:00] VITALS: BP 145/91
--- NOTE | 2021-08-18 09:10 | NUR ---
VASCULAR ACCESS NURSE- THIS PATIENT IS ON 1 IVP MEDICATION. RECOMMEND A PERIPHERAL IV PLACEMENT AND REMOVAL OF THE PICC LINE TO DECREASE THE RISKS OF A CENTRAL CATHETER RELATED BLOOD STREAM INFECTION IF THE PICC LINE IS NO LONGER NEEDED
[2021-08-18 11:40] VITALS: BP 154/93
[2021-08-18 13:09] VITALS: BP 166/67
--- NOTE | 2021-08-18 16:43 | NUR ---
Jeffery called and reports wants peer to peer prior to 1430. Sp with phys who reports patient no longer on IV medication, no wound care need, no need for BIPAP. Patient likely skilled. Sp with dtr Sushila who reports insurance called and reports phys declined peer to peer. Discussed dc planning to [facility] at [place]. She reports chose [place] [facility]. Sushila needed to be off phone soon she was at therapy. She believed clinic in [facility]. [facility] close to [facility]. Also [facility] in [place]. Left message at [facility]. Left 3 messages at [facility]. seven coordinating.
[2021-08-18 19:33] VITALS: BP 142/67
[2021-08-18 21:06] LABS: HISTOPLASMA MYCELIAL-CF Negative (Neg:<1:2)
[2021-08-19 05:48] VITALS: BP 164/86
[2021-08-19 06:12] LABS: HEMATOCRIT 27.9 % (42.0-52.0); MCH 29.8 pg (26.0-34.0); MCHC 32.4 g/dL (28.0-37.0); MCV 92.1 fL (80.0-100.0); RBC 3.03 mil/uL (4.50-6.00)
[2021-08-19 06:31] LABS: CALCIUM 8.3 mg/dL (8.5-10.1); MAGNESIUM 2.1 mg/dL (1.8-2.4); POTASSIUM 3.9 mmol/L (3.5-5.1)
[2021-08-19 06:38] LABS: CREATININE 7.9 mg/dL (0.7-1.3)
--- NOTE | 2021-08-19 17:06 | NUR ---
Kendell spoke with Adrienne in admissions at [facility]. She indicates pt's dtr Sushila works there and they did recieve an initial referral. They will accept the pt pending insurance auth and confirmation that outpt dialysis has been arranged in [place]. They can transport. She did attempt to call [facility] and they told her the pt was at [facility],which they had denied. She will need a clinical update Sunday to resubmit for SNF auth for hopeful admission Sunday and start of outpt dialysis on Sunday next week. Referral started with [facility] for the [place] clinic at [facility] [address]. Referral called and faxed to both [facility] admissions [phone],fax [phone] as well as to [facility] the clinic [facility] at [phone], fax [phone]. Requested start date for outpt dialysis is next 08/24. Message left for [facility] to see if they have an openning for next week. They are MWF only. Message left for the [facility] clinic as a back up to see if they have an openning as well [phone].
[2021-08-19 20:05] VITALS: BP 167/94
[2021-08-20] VITALS (7 sets, daily range): BP systolic 143–186; BP diastolic 64–92
[2021-08-20 04:10] LABS: CALCIUM 8.3 mg/dL (8.5-10.1); POTASSIUM 3.8 mmol/L (3.5-5.1)
[2021-08-20 04:11] LABS: CREATININE 5.4 mg/dL (0.7-1.3)
--- NOTE | 2021-08-20 06:51 | NUR ---
Pt A/OX4 with periods of forgetfulness noted. VSS. C/o pain to lower back,medicated with Fentanyl per EMAR with relief reported. Incontinent ob bowels with diarrhea,voiding per urinal at night.Negative for CDIFF. NSR on telemetry. Fall precautions in place,calls approp for help. Resting w/o distress,oxygen on @ 3L/NC,grunts in his sleep.
--- NOTE | 2021-08-20 17:44 | NUR ---
PT RESTING. PAIN RELITEVELY WELL CONTROLLED. PT AFEBRILE, ADEQUATE UOP, BM X1, FAIR APPETITE. R IJ HD CATH IN PLACE. PT AND FAMILY HAVE BEEN THOUROUGHLY UPDATED AND EDUCATED ON PT CONDITION AND POC. PT SLOWLY PROGRESSING TOWARDS POC.
--- NOTE | 2021-08-21 03:42 | NUR ---
ASSESSED AT START OF SHIFT. PT RESTING IN BED. REQUESTED PAIN MEDS. EVENING AND ND HYDRALAZINE GIVEN. URINAL AT BEDSIDE. FALL PREC IN PLACE. PT ON 3L OF O2. DENIES N/V. NO FURTHER SIGNS OF DISCOMFORT WILL CONT TO MONITOR.
[2021-08-21 03:50] VITALS: BP 167/80
[2021-08-21 07:40] VITALS: BP 184/89
[2021-08-21 11:20] VITALS: BP 171/75
[2021-08-21 16:00] VITALS: BP 172/81
[2021-08-21 20:00] VITALS: BP 171/87
--- NOTE | 2021-08-22 00:29 | NUR ---
UPON SHIFT REPORT, PT SLEEPING. UPON SHIFT ASSESSMENT, PT SLEEP INTERRUPTED. PT AOX4. PT REPORTING 8/10 BACK PAIN. PT RECEIVING PRN IV FENTANYL Q1HR WITH PRN PO APAP Q4HR AVAILABLE. PT REPORTS SOB WITH EXERTION AND INTERMITTENTLY REPORTS SOB AT REST WHILE ON 3L VIA NC, NO DESATURATIONS NOTED. PT RECEIVING SCHEDULED AND PRN BREATHING TREATMENTS. PT TOLERATING PO INTAKE OF FLUIDS AND RENAL DIET WITHOUT ISSUE. PT WITHOUT NAUSEA OR EMESIS. PT VOIDING PER URINAL. PT RESTING IN BED THROUGHOUT SHIFT, FREQUENT REPOSITIONING ENCOURAGED. PT NOTED TO SHIFT INDEPENDENTLY. +4 PITTING EDEMA NOTED TO BLE. SENSATION INTACT, CAPILLARY REFILL LESS THAN 3SEC, PERIPHERAL PULSES PALPABLE IN ALL EXTREMITIES. PT ENCOURAGED TO NOTIFY STAFF FOR ALL NEEDS, CALL LIGHT WITHIN REACH, BED ALARM ON, BED LOCKED IN LOWEST POSITION, FREQUENT MONITORING WILL CONTINUE.
[2021-08-22 03:20] VITALS: BP 174/87
[2021-08-22 07:40] VITALS: BP 177/96
[2021-08-22 11:25] VITALS: BP 164/96
--- NOTE | 2021-08-22 15:38 | HC ---
[facility] [place] [address] CONSULTATION Name: SHANTEL HUMPHREY Room #: 214-P [facility] IN M.R.#: [id number] Admission: 08/04/21 Attend Phys: Shira Luu MD Discharge: Date of : 57 Report #: [id number] THIS REPORT FOR: cc: Jorge Mcfadden James L. DO Smithson, David G. MD ~ DATE OF SERVICE: 08/10/2021 HISTORY OF PRESENT ILLNESS: The patient is a 66-year-old male who was transferred from [facility] to [facility] with respiratory failure. He was noted to have acute on chronic hypoxic respiratory failure, shock, acute renal failure superimposed on chronic kidney disease and has now been started on hemodialysis with a daily evaluation by Nephrology as he is borderline. He had a complication of an acute epistaxis with NG tube placement through his right naris with ENT involved and was replaced through the left naris. He also is on nasal cannula, O2 currently 4 liters. He had an ultrasound showing gallstones in his gallbladder. He has been treated for pneumonia and a COPD exacerbation. We are seeing him in rehabilitation medicine consultation. PAST MEDICAL HISTORY: Includes morbid obesity, rheumatoid arthritis. He has a history of chronic pain, vitamin D deficiency, COPD, GERD, insomnia, anxiety, BPH. HABITS: 40-year 2-pack per day smoker, quit in 12/2019. No history of alcohol usage/abuse. No history of recreational drug use. ALLERGIES: LEVOFLOXACIN AND MORPHINE ARE NOTED. MEDICATIONS: Please see the full medication listing. SOCIAL HISTORY: Lives in a house with his . No stairs. He was on nasal prong O2 premorbidly, has a walker, but did not typically use it, occasionally helped with dressing and helped with shower transfers. His daughter is a nurse that is supportive. REVIEW OF SYSTEMS: No current complaints of chest pain, shortness of breath, or abdominal discomfort. PHYSICAL EXAMINATION: GENERAL: A 66-year-old obese, pleasant white male in no obvious distress. VITAL SIGNS: Temperature 98.3, pulse 93, respirations 18, blood pressure 182/84. He is 6 feet, 304 pounds. HEENT: Nasal prong O2 is in place. He has had the NG tube that was switched over to the left naris. NEUROLOGIC: His facies are symmetric. Follows basic 1-step commands. He has [facility] [address] [place] [address] CONSULTATION Name: SHANTEL HUMPHREY Room #: 214-P [facility] IN [facility].#: [id number] Admission: 08/04/21 Attend Phys: Shira Luu MD Discharge: Date of : 57 Report #: [id number] functional range of motion of the upper extremities. Strength is grade 3+ to 4-/5. DTRs are trace to 1. Lower extremities functional range of motion, strength is grade 3+ to 4-/5. DTRs are trace to 1. No focal calf swelling. Tone appeared to be intact. He is max assist for basic transfers. He was able to take 2-3 steps max assist with a front-wheeled walker. Lower extremity dressing is max assist. ASSESSMENT: A 66-year-old white male with the following problems list: 1. Medical complexity with generalized debilitation. 2. Acute on chronic hypoxic respiratory failure. 3. Chronic obstructive pulmonary disease exacerbation. 4. Acute on chronic diastolic heart failure. 5. Pneumonia. 6. Acute epistaxis with NG tube placement at right naris, switched to left naris. 7. Untreated obstructive sleep apnea, intolerant to CPAP. 8. Acute renal failure superimposed on chronic kidney disease, is followed closely by Nephrology with daily evaluation for hemodialysis. 9. Electrolyte abnormalities. 10. Ultrasound showing gallstones and gallbladder. 11. Positive stool occult with elevated LFTs. GI involved with colonoscopy recommended at some point. 12. Morbid obesity, BMI of 42. PLAN: NG tube is being removed with a plan for clear liquids if okay with GI. He is feeling better and is motivated to try to improve strength and endurance. He does have multiple medical comorbidities and is being followed by multiple small business consultant physicians. Insurance precertification issues to be checked regarding an acute in-hospital inpatient rehabilitation stay [facility] where he can further improve strength and endurance and the multiple positions can continue to follow to try to maximize his functional independence prior to returning back to the home setting. Thank you for asking us to assist in this patient's care. <ELECTRONICALLY SIGNED> By: Rocael Clay MD 08/22/21 1538 [id number] [id number] Rocael Clay MD /nt
[2021-08-22 15:40] VITALS: BP 154/88
--- NOTE | 2021-08-22 17:42 | NUR ---
OVERALL PT HAD A GOOD DAY. WORKED WITH PT UP TO CHAIR. PT HAD 1 BOWEL MOVEMENT. DIALYSIS TOOK 3L. PT ASKED FOR PAIN MEDS FOR BACK PAIN SEE JAN.
--- NOTE | 2021-08-22 18:35 | NUR ---
Spoke with [facility]. Faxed clinical information. Patient will need covid test prior to discharge. they have communicated with dialysis clinic in [place]. It is their understainding patient cannot start dialysis at [facility] Sunday. Casemgt to confirm. Spoke with dtr updated above. Casemgt to call dtr in am. for clarification of skilled facility accepting and auth and dialysis in community.
[2021-08-22 19:55] VITALS: BP 168/96
[2021-08-23 04:45] VITALS: BP 164/98
[2021-08-23 06:07] LABS: ALBUMIN 2.8 g/dL (3.4-5.0); CALCIUM 8.5 mg/dL (8.5-10.1); CREATININE 5.5 mg/dL (0.7-1.3); POTASSIUM 5.5 mmol/L (3.5-5.1); TOTAL BILIRUBIN 0.4 mg/dL (0.2-1.0); TOTAL PROTEIN 6.2 g/dL (6.4-8.2)
--- NOTE | 2021-08-23 06:36 | NUR ---
ASSUMED CARE OF PT AT 1900. PT IS ALERT AND ORIENTEDX4, CHIEF COMPLAINT THROUGHOUT THE NIGHT IS GI AND BACK PAIN CONTROLLED THROUGHOUT THE NIGHT WITH FENTANYL 50 AND 75 MCG DOSES Q1HR. PAIN MEDS REQUESTED EVERY 2-3 HOURS. PT USES THE URINAL AND REMAINED IN BED THROUGHOUT THE NIGHT, FALL PRECAUTIONS IN PLACE. BP ELEVATED POSSIBLY DUE TO PAIN LEVEL, WILL PASS ON TO DAY SHIFT RN. WILL CONTINUE TO MONITOR.
[2021-08-23 08:36] VITALS: BP 158/97
--- NOTE | 2021-08-23 10:35 | NUR ---
PT ALERT AND ORIENTED TIMES FOUR. VSS. PT C/O PAIN PRN PAIN MEDIACTIONS GIVEN WITH GOOD RELEIF. PT TOLERATES MEDS AND MEALS. PLAN FOR POSSIBLE DISCHARGE TODAY. WILL CONTINUE TO MONITOR.
--- NOTE | 2021-08-23 10:57 | NUR ---
Clinical update faxed to Adrienne in admissions at [facility] to help facilitate insurance auth request. All parties hopeful for dc to snf tomorrow after dialysis and start of outpt dialysis at [facility] on Sunday 08/26. Unit cm following up with all parties.
[2021-08-23 11:19] VITALS: BP 157/98
[2021-08-23 15:22] VITALS: BP 178/89
[2021-08-23 19:41] VITALS: BP 172/78
--- NOTE | 2021-08-24 02:49 | NUR ---
PT IS A/O X4 AND IS UP WITH ASSISTANCE TO THE BR. REMAINS ON 3 LITERS NC O2. SR ON THE MONITOR. ROOM AIR. VSS AFEBRILE. C/O PAIN. PRN PAIN MEDICATION GIVEN DIRECTED. FALL PRECAUTIONS IN PLACE, CALL LIGHT IS WITHIN REACH.
[2021-08-24 03:59] VITALS: BP 160/96
[2021-08-24 07:30] VITALS: BP 133/106
--- NOTE | 2021-08-24 11:38 | NUR ---
Call back rec'd from Jyotsna at [facility]. The pt will be on the 2nd shift with start time of 10:30. They can start him on Sunday providing the SNF can sign their contract that they will provide transport. [facility] will not sign the contract and neither will [facility]. Jyotsna recommended trying [facility] or [facility]. Updated dtr Sushila and she talked with her parents. They opted for [facility] due to a family recommendation. Followup call rec'd from dtr Sushila indicating they really prefer [facility] as they know the TRENTON Borges. Referrals to [facility] and [facility] as well as [facility] canceled and referral called and faxed to Elena in admissions at [facility]. [facility] does take the pts ins plan and they can provide w/c van transport for dialysis. 124C and covid neg test also faxed with the referral. They will submit for auth today if they can take. [facility] is withdrawing their auth request. Will follow. Awaiting call back from [facility] to confirm acceptance.
[2021-08-24 19:49] VITALS: BP 151/70
--- NOTE | 2021-08-25 03:20 | NUR ---
ASSUMED PT CARE AT 1900, PT IS ALERT AND ORIENTED, ASSESSMENTS CHARTED, SR ON TELE, C/O BACK PAIN, PRN MEDS GIVEN WITH RELIEF, REMAINS ON 3L NC, O2SATS STABLE, PT RESTING IN BED, PROGRESSING WELL TOWARDS DISCHARGE; WILL CONTINUE TO MONITOR PER POC
[2021-08-25 03:40] VITALS: BP 144/60
[2021-08-25 07:42] VITALS: BP 130/70
--- NOTE | 2021-08-25 10:48 | NUR ---
Pt has been accepted by [facility] and they have submitted the skilled auth request this morning. They will arrange w/c van transport once auth confirmed which may not be until tomorrow. Plan at this time is for the pt to dialyze here tomorrow morning and hopefully dc to snf later in the day. He will then start his outpt dialysis at [facility] on Sunday with an arrival time of 9am due to paperwork. Dtr and admissions at [facility] updated and in agreement with the pt. The facility's van will be back from the shop by Sunday to provide dialysis transport. Chart copy requested.124C completed.
[2021-08-25 11:17] VITALS: BP 140/80
--- NOTE | 2021-08-25 15:31 | NUR ---
PT RESTING COMFORTABLY, AFEBRILE, ADEQUATE UOP, NO BM, POOR APPETITE. RIGHT IJ HD CATH IN PLACE. [facility] IS AWAITING INSURANCE AUTH. PT HAS BEEN THOUROUGHLY UPDATED AND EDUCATED ON PT CONDITION AND POC. PT SLOWLY PROGRESSING TOWARDS POC.
[2021-08-25 16:34] VITALS: BP 149/71
[2021-08-25 19:15] VITALS: BP 147/79
[2021-08-26 05:34] VITALS: BP 149/76
--- NOTE | 2021-08-26 07:27 | NUR ---
alert and oriented, sr on tele, pain meds given for back pain with relief, remains on 2-3 l, o2sats stable, assessments as charted, meds given as per mar, no needs, report given to day nurse
[2021-08-26 11:26] VITALS: BP 147/79
--- NOTE | 2021-08-26 11:41 | NUR ---
TOOK OVER CARE FOR PATIEN AT 0700. PATIENT RECEIVING HEMODIALYSIS AT THIS TIME; SLEEPING. RIJ HD ACCESSIBLE AND PATENT. SPOKE WITH VISUAL DEVELOPER REGARDING DISCHARGE PLAN TODAY TO [facility]. WILL CALL REPORT TO THE FACILITY. PATIENT DENIES PAIN. PATIENT RESTING COMFORTABLY. WILL CONTINUE TO MONITOR.
[2021-08-26] MEDS ORDERED: CARDIZEM CD120 MG PO (11:52)
[2021-08-26] MEDS ORDERED: PERCOCET 10-321 EACH PO (12:21)
--- NOTE | 2021-08-26 13:33 | NUR ---
patient discharged to long term facility [facility] at this time. patient agreeable to discharge plan. provided patient with location of skilled facility. denies any questions or concerns. transported by wheelchair via transportation company.
--- NOTE | 2021-08-26 14:36 | NUR ---
W/c chang Conde has picked up the pt to tx to SNF at [facility]. Pt did dialyze this morning. Chart copy,124c and orders sent with the pt. Orders faxed and confirmed with Ellen in admissions. Dc orders and flow sheets faxed and confirmed receipt with Jyotsna, clinical documentation manager at [facility] for soc Sunday. Pt's dtr and to meet him at the facility this afternoon to help with admissions and get him settled in. Pt to be skilled for continued rehab with the goal of returning home with his .
== END 2021-08-26 13:44 | DRG 871 ==
LOC: ICU 13:46 → 2N 16:22 → ICU 08-06 15:43 → 2N 08-09 18:19
PROVIDERS: Hospitalist; Internal Medicine; Internal Medicine Nephrology; Internal Medicine Pulmonary Disease; Nurse Practitioner; Pediatrics; Specialist; ADMIT Hospitalist; ATTEND Hospitalist
PROC: 5A09457 Assistance with Respiratory Ventilation, 24-96 Consecutive Hours, Continuous Positive Airway Pressure (ICD-10-PCS; principal; 2021-08-04)
PROC: 5A1D70Z Performance of Urinary Filtration, Intermittent, Less than 6 Hours Per Day (ICD-10-PCS; 2021-08-05)
PROC: 02HV33Z Insertion of Infusion Device into Superior Vena Cava, Percutaneous Approach (ICD-10-PCS; 2021-08-05)
PROC: B548ZZA Ultrasonography of Superior Vena Cava, Guidance (ICD-10-PCS; 2021-08-05)
PROC: 5A09357 Assistance with Respiratory Ventilation, Less than 24 Consecutive Hours, Continuous Positive Airway Pressure (ICD-10-PCS; 2021-08-06)
PROC: 5A09357 Assistance with Respiratory Ventilation, Less than 24 Consecutive Hours, Continuous Positive Airway Pressure (ICD-10-PCS; 2021-08-07)
PROC: 5A0935A Assistance with Respiratory Ventilation, Less than 24 Consecutive Hours, High Flow/Velocity Cannula (ICD-10-PCS; 2021-08-08)
PROC: 0DJ08ZZ Inspection of Upper Intestinal Tract, Via Natural or Artificial Opening Endoscopic (ICD-10-PCS; 2021-08-08)
PROC: 5A09357 Assistance with Respiratory Ventilation, Less than 24 Consecutive Hours, Continuous Positive Airway Pressure (ICD-10-PCS; 2021-08-10)
PROC: 0JH63XZ Insertion of Tunneled Vascular Access Device into Chest Subcutaneous Tissue and Fascia, Percutaneous Approach (ICD-10-PCS; 2021-08-15)
PROC: B5181ZA Fluoroscopy of Superior Vena Cava using Low Osmolar Contrast, Guidance (ICD-10-PCS; 2021-08-15)
PROC: 02HV33Z Insertion of Infusion Device into Superior Vena Cava, Percutaneous Approach (ICD-10-PCS; 2021-08-15)
PROC: 5A1D70Z Performance of Urinary Filtration, Intermittent, Less than 6 Hours Per Day (ICD-10-PCS; 2021-08-15)
PROC: B548ZZA Ultrasonography of Superior Vena Cava, Guidance (ICD-10-PCS; 2021-08-15)
PROC: 5A1D70Z Performance of Urinary Filtration, Intermittent, Less than 6 Hours Per Day (ICD-10-PCS; 2021-08-19)
PROC: 5A1D70Z Performance of Urinary Filtration, Intermittent, Less than 6 Hours Per Day (ICD-10-PCS; 2021-08-22)
PROC: 5A1D70Z Performance of Urinary Filtration, Intermittent, Less than 6 Hours Per Day (ICD-10-PCS; 2021-08-24)
PROC: 5A09357 Assistance with Respiratory Ventilation, Less than 24 Consecutive Hours, Continuous Positive Airway Pressure (ICD-10-PCS; 2021-08-26)
DX: A41.9 Sepsis, unspecified organism (principal); J18.9 Pneumonia, unspecified organism; N17.0 Acute kidney failure with tubular necrosis; I50.33 Acute on chronic diastolic (congestive) heart failure; J96.21 Acute and chronic respiratory failure with hypoxia; R57.1 Hypovolemic shock; J96.22 Acute and chronic respiratory failure with hypercapnia; G92.8 Other toxic encephalopathy; N18.6 End stage renal disease; Z68.41 Body mass index [BMI] 40.0-44.9, adult; K92.0 Hematemesis; E46 Unspecified protein-calorie malnutrition; I42.9 Cardiomyopathy, unspecified; K52.1 Toxic gastroenteritis and colitis; I13.2 Hypertensive heart and chronic kidney disease with heart failure and with stage 5 chronic kidney disease, or end stage renal disease; E66.01 Morbid (severe) obesity due to excess calories; E87.5 Hyperkalemia; G47.33 Obstructive sleep apnea (adult) (pediatric); M51.36 Other intervertebral disc degeneration, lumbar region; M06.9 Rheumatoid arthritis, unspecified; M19.90 Unspecified osteoarthritis, unspecified site; G89.29 Other chronic pain; G47.00 Insomnia, unspecified; F41.9 Anxiety disorder, unspecified; N40.0 Benign prostatic hyperplasia without lower urinary tract symptoms; K21.9 Gastro-esophageal reflux disease without esophagitis; K44.9 Diaphragmatic hernia without obstruction or gangrene; K29.70 Gastritis, unspecified, without bleeding; D64.9 Anemia, unspecified; K59.00 Constipation, unspecified; I16.0 Hypertensive urgency; R41.0 Disorientation, unspecified; J43.9 Emphysema, unspecified; K76.0 Fatty (change of) liver, not elsewhere classified; R04.0 Epistaxis; T36.95XA Adverse effect of unspecified systemic antibiotic, initial encounter; K80.20 Calculus of gallbladder without cholecystitis without obstruction; R74.01 Elevation of levels of liver transaminase levels; I95.9 Hypotension, unspecified; R53.81 Other malaise; Z79.52 Long term (current) use of systemic steroids; Z88.6 Allergy status to analgesic agent; Z88.8 Allergy status to other drugs, medicaments and biological substances; Z83.3 Family history of diabetes mellitus; Z87.891 Personal history of nicotine dependence; Z99.81 Dependence on supplemental oxygen; Z79.01 Long term (current) use of anticoagulants; Y92.89 Other specified places as the place of occurrence of the external cause; Z20.822 Contact with and (suspected) exposure to COVID-19
CPT/HCPCS: 10078; 10081; 10203; 27000; 32100; 62110; 62900; 65131

== ENCOUNTER 2021-09-06 07:32 | Emergency (ER) | payer OTHER ==
[~2021-09-06] VITALS: Ht 175.3 cm; Wt 117.9 kg
[~2021-09-06 07:32] MED LIST changes: +CARDIZEM CD120 MG PO; +PERCOCET 10-321 EACH PO
[2021-09-06 08:59] LABS: HEMATOCRIT 30.9 % (42.0-52.0); HEMOGLOBIN 9.9 gm/dL (14.0-18.0); MCH 29.8 pg (26.0-34.0); MCHC 32.1 g/dL (28.0-37.0); MCV 92.9 fL (80.0-100.0); PLATELET COUNT 258 thou/uL (150-400); RBC 3.33 mil/uL (4.50-6.00); RDW 15.7 % (10.5-14.5); WBC 10.4 thou/uL (4.0-11.0)
[2021-09-06 09:14] LABS: CALCIUM 8.8 mg/dL (8.5-10.1); CREATININE 3.8 mg/dL (0.7-1.3); POTASSIUM 3.8 mmol/L (3.5-5.1)
[2021-09-06 09:15] LABS: MAGNESIUM 1.9 mg/dL (1.8-2.4)
[2021-09-06 10:07] LABS: ABSOLUTE NEUTROPHILS 7.5 thou/uL (1.4-8.2); ANISOCYTOSIS 1+; METAMYELOCYTES 1 %; MYELOCYTES 1 %
--- NOTE | 2021-09-06 10:37 | EKG ---
[place] [address] [address] [place] [address] ELECTROCARDIOGRAM REPORT Name: SHANTEL HUMPHREY Room #: [facility]#: [id number] Admission: 09/06/21 Attend Phys: Discharge: Date of : 57 Report #: [id number] [facility] ED Test Date: 2021-09-06 Test Time: 08:36:58 Pat Name: SHANTEL HUMPHREY Department: Room: Gender: M Plastics Worker: TIARA : 1955 Requested By: Nicola Lea Order Number: [id number] MD: Bi Sutton Measurements Intervals [place] Rate: 88 P: 69 [place]: 169 QRS: 60 QRSD: 89 T: 66 QT: 366 QTc: 443 Interpretive Statements Sinus rhythm Probable left atrial enlargement Abnormal R-wave progression, early transition Compared to ECG 08/05/2021 09:42:00 Atrial premature complex(es) no longer present Electronically Signed On 09-06-2021 10:37:19 CDT by Bi Sutton [email or web address] <ELECTRONICALLY SIGNED> By: Bi Sutton MD, [facility] 09/06/21 [facility] 0836 5 Bi Sutton MD, FAC /EPI
[2021-09-06 12:00] VITALS: BP 136/80
== END 2021-09-06 12:00 ==
LOC: ER 07:32
PROVIDERS: Student in an Organized Health Care Education/Training Program
DX: T82.49XA Other complication of vascular dialysis catheter, initial encounter (principal); Z20.822 Contact with and (suspected) exposure to COVID-19; N18.6 End stage renal disease; J44.9 Chronic obstructive pulmonary disease, unspecified; K21.9 Gastro-esophageal reflux disease without esophagitis; F41.9 Anxiety disorder, unspecified; I10 Essential (primary) hypertension; Z99.2 Dependence on renal dialysis; Z90.49 Acquired absence of other specified parts of digestive tract; Z90.89 Acquired absence of other organs; Z85.828 Personal history of other malignant neoplasm of skin; Z79.51 Long term (current) use of inhaled steroids; Z79.82 Long term (current) use of aspirin; Z79.891 Long term (current) use of opiate analgesic; Z79.899 Other long term (current) drug therapy; Z79.1 Long term (current) use of non-steroidal anti-inflammatories (NSAID); Z88.5 Allergy status to narcotic agent; Z88.8 Allergy status to other drugs, medicaments and biological substances; Y93.89 Activity, other specified; Y92.89 Other specified places as the place of occurrence of the external cause

== ENCOUNTER → 2021-09-08 | Outpatient (CLI) | payer OTHER | LOC: SJCVC 12:40 | PROVIDERS: ATTEND Internal Medicine | DX: R94.31 Abnormal electrocardiogram [ECG] [EKG] (principal); Z09 Encounter for follow-up examination after completed treatment for conditions other than malignant neoplasm; Z13.220 Encounter for screening for lipoid disorders; F41.9 Anxiety disorder, unspecified; J44.9 Chronic obstructive pulmonary disease, unspecified; K21.9 Gastro-esophageal reflux disease without esophagitis; I10 Essential (primary) hypertension; M19.90 Unspecified osteoarthritis, unspecified site; G47.00 Insomnia, unspecified; Z87.891 Personal history of nicotine dependence; Z88.8 Allergy status to other drugs, medicaments and biological substances; Z79.82 Long term (current) use of aspirin; Z79.899 Other long term (current) drug therapy ==